=== PATIENT | female | born 1995 | race Caucasian/White ===

== ENCOUNTER 2020-08-10 12:09 | Emergency (ER) | payer MEDICAID ==
[~2020-08-10] VITALS: Ht 167.6 cm; Wt 86.5 kg
[~2020-08-10 12:09] MED LIST: ALBU8.5H8 IH; ALBU8HFA INH; GUAI1TBM19 PO; GUAI600T45 PO; IBUP-1986 PO; MOME45CR3 TP; ONDA4TAB12 PO
[2020-08-10 12:28] VITALS: BP 107/63
[2020-08-10 13:08] LABS: CLARITY,URINE SLIGHTLY CLOUDY (Clear); COLOR,URINE YELLOW (Yellow); GLUCOSE, URINE NEGATIVE (Neg); KETONES,URINE NEGATIVE (Neg); LEUKOCYTE ESTERASE ,URINE NEGATIVE (Neg); NITRITES, URINE NEGATIVE (Neg); OCCULT BLOOD,URINE MODERATE (Neg); PROTEIN,URINE NEGATIVE (Neg); UA COLLECTION TYPE CLN CATCH MIDSTREAM; UROBILINOGEN,URINE 0.2 E.U/dL (0.2-1.0)
[2020-08-10 13:09] LABS: URINE HCG NEGATIVE (NEG)
[2020-08-10 13:15] LABS: MUCUS STRANDS FEW /LPF (Neg); SQUAMOUS EPITHELIAL CELL,UR MANY /LPF (FEW)
[2020-08-10 13:17] LABS: BACTERIA,URINE FEW /HPF (Neg); RBC,URINE 0-2 /HPF (0-2); WBC,URINE 0-4 /HPF (0-4)
--- NOTE | 2020-08-10 14:09 | NUR ---
NOT IN LOBBY WHEN CALLED TO TREATMENT AREA
--- NOTE | 2020-08-10 14:17 | NUR ---
NOT IN LOBBY TIMES 2
--- NOTE | 2020-08-10 14:52 | NUR ---
not in lobby
== END 2020-08-10 14:53 | disposition left against medical advice (07) ==
LOC: ER 12:09
DX: Z32.00 Encounter for pregnancy test, result unknown (principal); Z53.21 Procedure and treatment not carried out due to patient leaving prior to being seen by health care provider
CPT/HCPCS: 81001; 81025

== ENCOUNTER 2021-11-19 14:32 | Emergency (ER) | payer MEDICAID ==
[~2021-11-19] VITALS: Ht 167.6 cm; Wt 86.4 kg
[~2021-11-19 14:32] MED LIST changes: +ALBU8.5H17 IH; -ALBU8.5H8 IH
[2021-11-19 15:36] VITALS: BP 126/75
== END 2021-11-19 18:01 | disposition left against medical advice (07) ==
LOC: ER 14:34
DX: L02.415 Cutaneous abscess of right lower limb (principal); Z53.21 Procedure and treatment not carried out due to patient leaving prior to being seen by health care provider

== ENCOUNTER 2022-01-08 09:54 | Emergency (ER) | payer MEDICAID ==
[~2022-01-08] VITALS: Ht 167.6 cm; Wt 86.4 kg
[2022-01-08 09:59] VITALS: BP 134/78
[2022-01-08 11:59] LABS: URINE HCG NEGATIVE (NEG)
[2022-01-08] MEDS ORDERED: MUPI22OI30 TOP (12:39)
== END 2022-01-08 12:58 | disposition home or self-care (01) ==
LOC: ER 09:55
DX: L91.0 Hypertrophic scar (principal); N91.2 Amenorrhea, unspecified; Z88.5 Allergy status to narcotic agent
CPT/HCPCS: 81025; 99283

== ENCOUNTER 2022-01-10 20:27 | Emergency (ER) | payer MEDICAID ==
[~2022-01-10] VITALS: Ht 165.1 cm; Wt 60.0 kg
[~2022-01-10 20:27] MED LIST changes: +MUPI22OI30 TOP
[2022-01-10] MEDS ORDERED: fentaNYL 50MCG/ML 2ML intranasal KIT (WASTE REMAINDER W/WITNESS) NAS STA (20:50)
[2022-01-10] MEDS ORDERED: LIDOcaine 1% W/epiNEPHrine 1:100,000 20ml vial SQ ONE (20:50)
[2022-01-10] MEDS ORDERED: ceFAZolin/D5W- 1GM premix 50 ML IV STA (21:12)
[2022-01-10] MEDS ORDERED: tetanus & diphtheria toxoid (Td) vaccine 0.5ml IMVAC ONE (21:15)
[2022-01-10] MEDS ORDERED: iohexol 350MG/ML 100ml bottle IV ONE (21:18)
[2022-01-10] MEDS ORDERED: TETanus/Pertussis (Acell)/Diphther VAC/PF (Tdap-Adult) 0.5ml syringe IMVAC ONE (21:25)
[2022-01-10 21:37] LABS: BASOPHILS # (AUTO) 0.1 X10'3 (0-0.2); BASOPHILS % (AUTO) 0.5 % (0-1); EOSINOPHILS # (AUTO) 0.3 X10'3 (0-0.9); EOSINOPHILS % (AUTO) 2.2 % (0-6); HEMATOCRIT 34.8 % (35.0-45.0); LYMPHOCYTES # (AUTO) 2.1 X10'3 (1.1-4.8); LYMPHOCYTES % (AUTO) 15.9 % (21-51); MEAN CORPUSCULAR HEMOGLOBIN 28.2 PG (27.0-31.0); MEAN CORPUSCULAR HGB CONC 34.5 g/dL (33.0-36.5); MEAN CORPUSCULAR VOLUME 81.6 FL (78-98); MEAN PLATELET VOLUME 9.1 FL (7.4-10.4); MONOCYTES # (AUTO) 0.8 X10'3 (0-0.9); MONOCYTES % (AUTO) 6.1 % (2-12); NEUTROPHILS # (AUTO) 10.2 X10'3 (1.8-7.7); NEUTROPHILS % (AUTO) 75.3 % (42-75); PLATELET COUNT 346 X10'3 (140-440); RED BLOOD COUNT 4.26 X10'6 (4.20-5.60); RED CELL DISTRIBUTION WIDTH 13.4 % (11.5-14.5); WHITE BLOOD COUNT 13.6 X10'3 (4.5-11.0)
[2022-01-10] MEDS ORDERED: ketamine 10mg/ml 20ml inj vial IV ONE (21:40)
[2022-01-10 21:44] LABS: HCG SERUM QL NEGATIVE
[2022-01-10] MEDS ORDERED: ketamine 50 mg/ml 10ml vial IV ONE (21:45)
[2022-01-10 21:49] LABS: ALANINE AMINOTRANSFERASE 24 U/L (12-78); ALBUMIN 3.5 G/DL (3.4-5.0); ALBUMIN/GLOBULIN RATIO 0.8 (1.1-1.5); ALKALINE PHOSPHATASE 59 IU/L (46-116); ANION GAP 12 (8-16); ASPARTATE AMINO TRANSFERASE 28 U/L (10-37); BILIRUBIN,TOTAL 0.7 MG/DL (0.1-1.0); BLOOD UREA NITROGEN 12 MG/DL (7-18); BUN/CREATININE RATIO 9.9 (6.6-38.0); CALCIUM 8.6 MG/DL (8.5-10.1); CHLORIDE 107 MMOL/L (99-107); CREATININE 1.21 MG/DL (0.40-0.90); ETHANOL < 0.010 GM/DL (0.0-0.010); GLUCOSE 127 MG/DL (70-104); SODIUM 141 MMOL/L (135-145); TOTAL CARBON DIOXIDE 21.8 MMOL/L (24-32); eGFR 54 ML/MIN
[2022-01-10 21:51] LABS: POTASSIUM 3.1 MMOL/L (3.5-5.1)
[2022-01-11] MEDS ORDERED: AMOX-117 PO (00:14)
[2022-01-11] MEDS ORDERED: amox tr/potassium clavulanate 875/125mg TAB PO ONE (00:15)
[2022-01-11] MEDS ORDERED: potassium Cl 10 mEq/100mL bag IV ONE (00:35)
[2022-01-11] MEDS ORDERED: POTASSIUM BICARB 20meq eff tab 20 MEQ TABLET.EFF PO ONE (00:35)
[2022-01-11] MEDS ORDERED: normal saline 1000ML IV soln IVB ONE (00:35)
--- NOTE | 2022-01-11 00:38 | NUR ---
Patient, able to sustain respirations independently, taken to CT.
--- NOTE | 2022-01-11 00:55 | NUR ---
Patient returned from CT. Vitals WNL.
[2022-01-11 01:34] LABS: URINE AMPHETAMINE SCREEN POSITIVE (Neg); URINE BARBITUATE SCREEN NEGATIVE (Neg); URINE BENZODIAZEPINES SCREEN NEGATIVE (Neg); URINE CANNABINOID SCREEN POSITIVE (Neg); URINE COCAINE SCREEN NEGATIVE (Neg); URINE METHADONE SCREEN NEGATIVE (Neg); URINE OPIATE SCREEN NEGATIVE (Neg); URINE PHENCYCLIDINE SCREEN NEGATIVE (Neg)
[2022-01-11 02:00] VITALS: BP 140/71
== END 2022-01-11 07:50 ==
LOC: ER 20:29
DX: S41.112A Laceration without foreign body of left upper arm, initial encounter (principal); F19.10 Other psychoactive substance abuse, uncomplicated; Z88.5 Allergy status to narcotic agent; Z79.899 Other long term (current) drug therapy; Z79.1 Long term (current) use of non-steroidal anti-inflammatories (NSAID); W54.0XXA Bitten by dog, initial encounter; Y93.89 Activity, other specified; Y92.89 Other specified places as the place of occurrence of the external cause; Y99.8 Other external cause status
CPT/HCPCS: 12001; 36415; 70450; 73070; 73206; 73560; 80053; 80305; 80320; 84703; 85025; 90471; 90715; 94760; 94799; 96361; 96365; 96375; 99152; 99153; 99285; J0690; J3010; J3480; J3490; J7030; Q9967; A4565; A4620

== ENCOUNTER 2024-01-04 15:57 | Emergency (ER) | payer MEDICAID ==
[~2024-01-04] VITALS: Ht 167.6 cm; Wt 128.1 kg
[~2024-01-04 15:57] MED LIST changes: -MUPI22OI30 TOP; +ONDA-243 PO; -ONDA4TAB12 PO
[2024-01-04 16:43] LABS: BILIRUBIN,URINE MODERATE (Neg); CLARITY,URINE CLOUDY (Clear); COLOR,URINE YELLOW (Yellow); GLUCOSE, URINE NEGATIVE (Neg); KETONES,URINE TRACE mg/dl (Neg); LEUKOCYTE ESTERASE ,URINE NEGATIVE (Neg); NITRITES, URINE NEGATIVE (Neg); OCCULT BLOOD,URINE MODERATE (Neg); PROTEIN,URINE 30 mg/dl (Neg)
[2024-01-04 16:46] LABS: URINE HCG NEGATIVE (NEG)
[2024-01-04 16:48] LABS: UA COLLECTION TYPE CLN CATCH MIDSTREAM
[2024-01-04 16:49] LABS: HYALINE CASTS >30 /LPF (NEGATIVE); SQUAMOUS EPITHELIAL CELL,UR MANY /LPF (FEW)
[2024-01-04 16:50] LABS: RBC,URINE 20-50 /HPF (0-2)
[2024-01-04 16:51] LABS: BACTERIA,URINE 2+ /HPF (Neg); TRANSITIONAL EPI CELLS,URINE FEW /HPF
[2024-01-04 16:52] LABS: AMORPHOUS URATES 1+
[2024-01-04] MEDS ORDERED: CEPH-585 PO (17:03)
[2024-01-04] MEDS ORDERED: SKIN30CL4 TOP (17:03)
[2024-01-04] MEDS ORDERED: PHEN-716 PO (17:03)
[2024-01-04 17:11] VITALS: BP 132/86; PULSE 122; RESP 24; TEMP 97.8; O2SAT 98
== END 2024-01-04 17:14 | disposition home or self-care (01) ==
LOC: ER 15:58
DX: N39.0 Urinary tract infection, site not specified (principal); R21 Rash and other nonspecific skin eruption; F90.8 Attention-deficit hyperactivity disorder, other type; L23.7 Allergic contact dermatitis due to plants, except food; Z88.8 Allergy status to other drugs, medicaments and biological substances; Z79.899 Other long term (current) drug therapy; Z79.1 Long term (current) use of non-steroidal anti-inflammatories (NSAID); Z72.89 Other problems related to lifestyle
CPT/HCPCS: 81001; 81025; 99283

== ENCOUNTER 2025-03-29 12:44 | Emergency (ER) | payer SELFPAY ==
[~2025-03-29] VITALS: Ht 167.6 cm; Wt 88.4 kg
[~2025-03-29 12:44] MED LIST changes: +PHEN-716 PO; +SKIN30CL4 TOP
[2025-03-29 13:42] LABS: MEAN PLATELET VOLUME 9.5 FL (7.4-10.4); RED CELL DISTRIBUTION WIDTH 13.1 % (11.5-14.5)
[2025-03-29 13:58] LABS: LEUKOCYTE ESTERASE ,URINE NEGATIVE (Neg); NITRITES, URINE NEGATIVE (Neg); OCCULT BLOOD,URINE NEGATIVE (Neg)
[2025-03-29 14:00] LABS: URINE HCG NEGATIVE (NEG)
[2025-03-29 14:04] LABS: CREATININE 1.02 MG/DL (0.40-0.90); ETHANOL < 10 MG/DL (<10); TOTAL CARBON DIOXIDE 28.0 MMOL/L (24-32); eCRCL 76 ML/MIN; eGFR 64 ML/MIN
[2025-03-29 14:05] LABS: UA COLLECTION TYPE CLN CATCH MIDSTREAM
[2025-03-29 14:06] LABS: MUCUS STRANDS MODERATE /LPF (Neg); SQUAMOUS EPITHELIAL CELL,UR MANY /LPF (FEW)
[2025-03-29 14:10] LABS: AMORPHOUS URATES 4+; URIC ACID CRYSTALS 4+ /HPF (NEGATIVE)
[2025-03-29 14:12] LABS: URINE AMPHETAMINE SCREEN POSITIVE (Neg); URINE BARBITUATE SCREEN NEGATIVE (Neg); URINE BENZODIAZEPINES SCREEN NEGATIVE (Neg); URINE CANNABINOID SCREEN POSITIVE (Neg); URINE COCAINE SCREEN NEGATIVE (Neg); URINE METHADONE SCREEN NEGATIVE (Neg); URINE OPIATE SCREEN NEGATIVE (Neg); URINE PHENCYCLIDINE SCREEN NEGATIVE (Neg)
--- NOTE | 2025-03-29 15:01 | Physician Documentation ---
History of Present Illness ~ Chief Complaint: 5150 Stated Complaint: 5150 Time Seen by MD: 13:41 OK to notify your PCP?: Yes Primary Medical Doctor: [facility] Source: patient, RN/, RN notes reviewed, old records Mode of Arrival: Ambulatory, Police Exam Limitations: no limitations HPI This patient was brought in his a 5150 by police. The patient apparently was driving erratically and was naked. Patient's incoherence not making sense. She has a psychiatric history as well as polysubstance drug abuse history. Patient was thought to be a danger to self and others and was placed on a 5150 by police. Patient is disheveled and appears much older than stated age. Medication Reconciliation Allergies: Coded Allergies: codeine (Verified Allergy, Unknown, NAUSEA, 03/29/25) Scheduled Guaifenesin (Mucinex), 1 TAB PO Q12H Guaifenesin/Dextromethorphan (Mucinex Dm ER 1,200-60 mg Tab), 1 TAB PO Q12H Ibuprofen (Ibuprofen), 1 TAB PO Q8H Mometasone Furoate (Mometasone Furoate), 1 APPLIC TP DAILY Phenazopyridine HCl (Pyridium), 1 TAB PO Q8H Skin Cleanser Combination No.8 (Zanfel), 1 APPLIC TOP Q8H Scheduled PRN Albuterol Sulfate (Proair Hfa), 2 PUFFS IH Q6H PRN for SOB or wheezing ONDANSETRON ODT 4mg tablet (Ondansetron Odt), 1 TABLET PO Q6H PRN for nausea/vomiting albuterol inhaler (Pro-Air Inhaler), 2 PUFFS INH QID PRN for cough Past Medical History Past Medical History: No Pertinent History Past Surgical History: no surgical history Alcohol Use: Occasionally Drug Use: none Lives with: Family Lives In: Home Occupation: student Review of Systems ROS Patient is disheveled not answering questions Physical Exam Vital Signs: RN Vital Signs have been reviewed: Yes, Temperature: 98.0, Source: Temporal, Heart Rate: 75, Respiratory Rate: 16, BP: 118/68, Pulse Oximetry: 97, Weight: 88.400 Oxygen Flow Rate: 0 Physical Exam General: The patient is well developed, well nourished, nontoxic appearing and is in no acute distress. Patient is quite disheveled naked no close Skin: [place], warm and dry with no rashes. HEENT: Head was normocephalic and atraumatic. Eyes - pupils equal, round, reactive to light and accommodation. Extraocular movements were intact. Conjunctivae were nonicteric. The mouth and oropharynx were clear with moist mucous membranes. There were no pharyngeal exudates or erythema. Neck: Supple and nontender. There was no jugular venous distention, lymphadenopathy, thyromegaly or masses. Chest: Clear to auscultation bilaterally without wheezes, rales or rhonchi. No accessory muscle use. No dullness to percussion. Heart: Rate regular and rhythmic. S1, S2. No murmurs. Palpation of the chest wall was normal. No rubs or thrills. Abdomen: Soft, nontender and nondistended. Positive bowel sounds. No guarding or rebound. No hepatosplenomegaly or palpable masses. Extremities: No cyanosis, clubbing or edema. The patient moves all extremities. Pulses were equal and symmetric. Neurologic: Motor sensory grossly intact Psychologic: The patient was oriented to person, The patient demonstrated or judgement and insight. Flat affect appears distracted possible auditory stimulation. Progress Progress Note Transfer orders for [facility]: At this time there is no evidence of an emergent medical condition that would preclude (admission/transfer) to a psychiatric unit via [facility] protocol for further psychiatric, as well as medical evaluation and treatment. At this time I have no reason to believe that transfer via [facility] protocol would have serious medical compromise in the patient's health. Results/Orders Reviewed/noted all lab results: Yes Results/Orders Orders - AMBROSIO HORTON MD Med Rec (03/29/25 12:53) Close Observation Level (03/29/25 12:53) Covid19 Binax Poc Result Entry (03/29/25 12:53) Regular Diet (03/29/25 Dinner) Potassium Cl 10meq/100ml Bag (Potassium (03/29/25 15:05) Completed Orders - AMBROSIO HORTON MD Cbc/Diff (03/29/25 12:53) Hcg, Ur Ql (03/29/25 12:53) Drug Screen, Urine (03/29/25 12:53) Ethanol (03/29/25 12:53) TSH (03/29/25 12:53) BMP (03/29/25 12:53) Ua With Microscopic (03/29/25 13:30) Magnesium Oxide Tablet (Mag-Ox 400mg Tab (03/29/25 15:05) Vital Signs 03/29/25 03/29/25 12:46 13:50 Temp 98.0 Pulse 75 Resp 16 B/P (MAP) 118/68 Pulse Ox 97 O2 Flow Rate 0 Laboratory Tests Test 03/29/25 12:57 03/29/25 13:12 03/29/25 13:30 SARS-CoV-2 Antigen (Rapid) Negative White Blood Count 11.5 H Red Blood Count 5.01 Hemoglobin 14.3 Hematocrit 41.5 Mean Corpuscular Volume 82.9 Mean Corpuscular Hemoglobin 28.6 Mean Corpuscular Hemoglobin Concent 34.5 Red Cell Distribution Width 13.1 Platelet Count 332 Mean Platelet Volume 9.5 Neutrophils (%) (Auto) 72.9 Lymphocytes (%) (Auto) 19.5 L Monocytes (%) (Auto) 6.6 Eosinophils (%) (Auto) 0.2 Basophils (%) (Auto) 0.8 Neutrophils # (Auto) 8.4 H Lymphocytes # (Auto) 2.2 Monocytes # (Auto) 0.8 Eosinophils # (Auto) 0.0 Basophils # (Auto) 0.1 CBC Comment Sodium Level 142 Potassium Level 3.1 L Chloride Level 105 Carbon Dioxide Level 28.0 Anion Gap 9 Blood Urea Nitrogen 16 Creatinine 1.02 H Estimated GFR/1.73 m2 64 BUN/Creatinine Ratio 15.7 Glucose Level 85 Calcium Level 9.0 Albumin 4.2 Thyroid Stimulating Hormone (TSH) 0.63 Chemistry Comments Ethyl Alcohol Level < 10 Urine Specimen Description Cln catch midstream Urine Color Shanika Urine Clarity Cloudy Urine pH 6.0 Urine Specific Randall >=1.030 Urine Protein 30 H Urine Glucose (UA) Negative Urine Ketones 40 H Urine Occult Blood Negative Urine Nitrite Negative Urine Bilirubin Moderate Urine Urobilinogen 0.2 Urine Leukocyte Esterase Negative Urine RBC 0-2 Urine WBC 0-4 Urine Squamous Epithelial Cells Many Urine Uric Acid Crystals 4+ Urine Amorphous Urates 4+ Urine Bacteria Few Urine Mucus Moderate Volume Urine Centrifuged 10 ml Urine HCG, Qualitative Negative Urine Comment Urine Opiates Screen Negative Urine Methadone Screen Negative Urine Fentanyl Screen Positive H Urine Barbiturates Screen Negative Urine Phencyclidine Screen Negative Urine Amphetamines Screen Positive Urine Benzodiazepines Screen Negative Urine Cocaine Screen Negative Urine Cannabinoids Screen Positive Drug Screen Comment Re-Evaluation Re-Evaluation : Re-Evaluation: Improved Progress Patient has been asking for a shower. Patient has been medically cleared for mental health. Patient's laboratory work shows slight elevation of white count at 11.5 but no left shift no anemia chemistry within normal limits potassium borderline low at 3.1 both potassium and magnesium were given orally. Patient's tox screen is positive for methamphetamine marijuana and fentanyl urinalysis shows many epithelial cells contaminated specimen no signs of UTI. Alcohol is negative. Patient was given medications and medically cleared for mental health. Medical Decision Making Additional information obtaine: old records Findings Infectious versus polysubstance drug abuse versus metabolic versus psychiatric etiologies were considered Differential Dx:Considerations: Include: Alcohol abuse, Anxiety, Bipolar disorder, Conversion disorder, Depression, Encephaloathy, Homicidal, Panic disorder, Personality disorder, Schizophrenia, Substance abuse, Suicidal, Other Departure Disposition: 30 STILL A PATIENT Impression: Primary Impression: Patient needs psychiatric hold for evaluation Additional Impression: Polysubstance abuse Discharge Instructions: Medical Screening Exam, Psychosis Referrals: NO PRIMARY CARE PROVIDER (PCP) Education Educated: Patient Educated regarding: diagnosis, prognosis, need for follow up, other Signature Scribe Signature: No scribed Attestation: The note accurately reflects work and decisions made by me.Ambrosio Horton MD 03/29/25 16:05 AMBROSIO HORTON MD Mar 29, 2025 15:01
[2025-03-29] MEDS: potassium CL 10mEq/100ml bag 100 ML IV ONE (16:13)
[2025-03-30] MEDS: ondansetron 4mg rapidly disintigrating tab PO ONE (08:34)
[2025-03-30] MEDS: OLANZAPINE 5 MG TABLET PO SCH (16:03)
[2025-03-30 17:15] VITALS: BP 125/80; PULSE 59; RESP 16; TEMP 98.7; O2SAT 98
== END 2025-03-30 17:37 | disposition home or self-care (01) ==
LOC: ER 12:45
DX: F19.10 Other psychoactive substance abuse, uncomplicated (principal); Z88.5 Allergy status to narcotic agent; Z79.899 Other long term (current) drug therapy; Z72.89 Other problems related to lifestyle; Z20.822 Contact with and (suspected) exposure to COVID-19
CPT/HCPCS: 36415; 80048; 80305; 80320; 81001; 81025; 84443; 85025; 87811; 96360; 99285; J3480; J7040; Q0163

== ENCOUNTER 2025-05-21 12:31 | Emergency (ER) | payer OTHER ==
[~2025-05-21] VITALS: Ht 167.6 cm; Wt 83.1 kg
[2025-05-21 12:48] VITALS: BP 115/72; PULSE 78; RESP 16; TEMP 98; O2SAT 100
--- NOTE | 2025-05-21 14:45 | Physician Documentation ---
History of Present Illness General Chief Complaint: See Chief Complaint Stated Complaint: PREG TEST Time Seen by MD: 14:14 Primary Medical Doctor: Hollis Hu History of Present Illness Initial Comments 30-year-old female denies prior Hx of . Presents to the emergency department with a vague complaints & poor historian. Just recently discharged from assisted. Reports that she may be a proximally two months. No lower abdominal discomfort or vaginal discharge or bleeding. States she has a history of thyroid disorder. Uses multiple recreational drugs and times and appears somnolent presently. No obvious abrasions or contusions. Medication Reconciliation Allergies: Coded Allergies: codeine (Verified Allergy, Unknown, NAUSEA, 03/29/25) Scheduled Guaifenesin (Mucinex), 1 TAB PO Q12H Guaifenesin/Dextromethorphan (Mucinex Dm ER 1,200-60 mg Tab), 1 TAB PO Q12H Ibuprofen (Ibuprofen), 1 TAB PO Q8H Mometasone Furoate (Mometasone Furoate), 1 APPLIC TP DAILY Phenazopyridine HCl (Pyridium), 1 TAB PO Q8H Skin Cleanser Combination No.8 (Zanfel), 1 APPLIC TOP Q8H Scheduled PRN Albuterol Sulfate (Proair Hfa), 2 PUFFS IH Q6H PRN for SOB or wheezing ONDANSETRON ODT 4mg tablet (Ondansetron Odt), 1 TABLET PO Q6H PRN for nausea/vomiting albuterol inhaler (Pro-Air Inhaler), 2 PUFFS INH QID PRN for cough Past Medical History Past Medical History: No Pertinent History Past Surgical History: no surgical history Smoking: Cigarettes, Less than 1 pack/day Alcohol Use: Occasionally Drug Use: none Lives with: Family Lives In: Home Occupation: student Review of Systems All Other Systems at this time: Reviewed and Negative ROS Patient is somnolent, poor historian vague complaints. Physical Exam Physical Exam Vital Signs: RN Vital Signs have been reviewed: Yes, Temperature: 98.0, Source: Temporal, Heart Rate: 78, Respiratory Rate: 16, BP: 115/72, Pulse Oximetry: 100, Weight: 83.100 Oxygen Flow Rate: 0 General Appearance: somnolent Head: normal inspection Face: normal inspection Pupils/EOM/Fundus: PERRLA Respiratory: no respiratory distress Chest: no accessory muscle use Cardiovascular: normal peripheral pulses, regular rate, rhythm Gastrointestinal: non-tender Neurologic: oriented x4 Motor / Sensory: no motor deficit, no sensory deficit Psychiatric: normal mood/affect Skin: normal color Progress Results/Orders Results/Orders Vital Signs 05/21/25 12:48 Temp 98.0 Pulse 78 Resp 16 B/P (MAP) 115/72 Pulse Ox 100 O2 Flow Rate 0 Medical Decision Making Additional information obtaine: N/A Findings 30-year-old female with vague complaints. Laboratory screening to evaluate for electrolyte derangement, STI screening and urinalysis screening. HCG screening for . Additionally public health screening of the RPR and hepatitis panel. Patient is upset that her lab draw was unsuccessful x1 and became be lligerent disrespectful to staff and chose to leave against medical advice. All risks alternatives benefits of care and explained the patient up to including in the importance of public health screening. Differential Diagnosis , electrolyte derangement, STI, public health issues, psychiatric disorders Departure Disposition: LEFT AGAINST MEDICAL ADVICE Impression: Primary Impression: screening Referrals: NO PRIMARY CARE PROVIDER (PCP) Signature Scribe Signature: . Attestation: . PRIYA CLEMENT PAC May 21, 2025 14:45
== END 2025-05-21 15:22 | disposition left against medical advice (07) ==
LOC: ER 12:31
DX: Z00.00 Encounter for general adult medical examination without abnormal findings (principal); F17.210 Nicotine dependence, cigarettes, uncomplicated; Z88.5 Allergy status to narcotic agent; Z79.899 Other long term (current) drug therapy; Z72.89 Other problems related to lifestyle
CPT/HCPCS: 99282